=== PATIENT | male | born 1955 | race Caucasian/White ===

== ENCOUNTER 2018-04-26 12:50 | Day surgery (SDC) | payer OTHER ==
[2018-04-26] MEDS ORDERED: MIDAZOLAM 1 MG/ML 2 ML INJ ×2 (15:04)
[2018-04-26] MEDS ORDERED: FENTAnyl 50 MCG/ML VIAL (15:04)
== END 2018-04-26 16:43 | disposition home or self-care (01) ==
LOC: GIL 12:50
DX: Z12.11 Encounter for screening for malignant neoplasm of colon (principal); D12.8 Benign neoplasm of rectum; E78.5 Hyperlipidemia, unspecified; I10 Essential (primary) hypertension; E11.9 Type 2 diabetes mellitus without complications
CPT/HCPCS: 45380; 88305